=== PATIENT | female | born 1985 | race Caucasian/White ===

== ENCOUNTER 2021-10-27 09:21 | Outpatient (CLI) | payer OTHER, SELFPAY ==
[2021-11-03 02:43] LABS: Ova and Parasite, Fecal Negative (Negative)
== END 2021-10-27 09:22 | disposition home or self-care (01) ==
PROVIDERS: Visit Provider Registered Nurse
DX: R14.0 Abdominal distension (gaseous) (principal); R10.9 Unspecified abdominal pain
CPT/HCPCS: 87045; 87046; 87177; 87209; 87427

== ENCOUNTER 2022-01-18 10:31 | Outpatient (CLI) | payer OTHER, SELFPAY ==
[2022-01-18 22:02] LABS: Albumin* 4.5 g/dL (3.3-5.0); Chloride* 102 mmol/L (96-114)
[2022-01-18 22:03] LABS: Potassium* 4.3 mmol/L (3.6-5.1); Sodium* 140 mmol/L (135-149)
[2022-01-18 22:04] LABS: Cholesterol* 171 mg/dL (90-199)
[2022-01-18 22:05] LABS: Alkaline Phosphatase* 115 U/L (40-150); Aspartate Amino Transferase* 31 U/L (12-35); Bilirubin Total* 0.7 mg/dL (0.1-1.5); Blood Urea Nitrogen* 18 mg/dL (5-24); Carbon Dioxide* 27 mmol/L (20-32); Creatinine* 0.7 mg/dL (0.5-1.5); Estimated Glomerular Filt Rate 115 ml/min; Glucose* 81 mg/dL (60-115); Total Protein* 7.5 g/dL (6.0-8.3); Triglycerides* 228 mg/dL (40-149)
[2022-01-18 22:06] LABS: Alanine Aminotransferase* 29 U/L (4-35); Calcium* 9.3 mg/dL (8.4-10.6); HDL Cholesterol* 40 mg/dL (>=50); LDL Cholesterol Calculated 85 mg/dL (<100)
[2022-01-18 22:50] LABS: Hepatitis C Virus Antibody* Negative (Negative)
== END 2022-01-18 10:32 | disposition home or self-care (01) ==
PROVIDERS: PCP Family Medicine; Visit Provider Family Medicine
DX: Z01.419 Encounter for gynecological examination (general) (routine) without abnormal findings (principal); E03.9 Hypothyroidism, unspecified; Z13.6 Encounter for screening for cardiovascular disorders; Z11.59 Encounter for screening for other viral diseases
CPT/HCPCS: 80053; 80061; 84443; 86803

== ENCOUNTER 2022-09-13 12:49 | Outpatient (CLI) | payer OTHER, SELFPAY ==
--- NOTE | 2022-09-13 13:00 | CRLHL7_ITS ---
For Patients: As a result of the Cures Act, medical imaging exams and procedure reports are released immediately into your electronic medical record. You may view this report before your referring provider. If you have questions, please contact your health care provider. BILATERAL DIGITAL SCREENING MAMMOGRAM WITH COMPUTER-AIDED DETECTION AND TOMOSYNTHESIS CLINICAL HISTORY: Routine screening exam. COMPARISON: 06/03/2021. TECHNIQUE: Digital mammogram in CC and MLO projections including computer-aided detection (CAD). Tomosynthesis was used. BREAST COMPOSITION: There are scattered areas of fibroglandular density FINDINGS: RIGHT Breast: No suspicious findings, stable nodular densities. LEFT Breast: Nodular density upper outer quadrant 6 cm from the nipple. IMPRESSION: LEFT breast asymmetry/mass. RECOMMENDATIONS: LEFT breast ultrasound recommended. The [facility] will contact the patient for follow-up. BI-RADS Category 0: Incomplete: Need Additional Imaging Evaluation and/or Prior Mammograms for Comparison. A lay language report of this examination will be provided to the patient. Dictated by Jair Odell MD @ 09/14/2022 8:35:29 AM/sandra TESS/Dictated by: Jair Odell MD @ 09/14/2022 8:35:00 AM (Electronically Signed)
== END 2022-09-13 12:50 | disposition home or self-care (01) ==
LOC: MAMMO 12:50
PROVIDERS: PCP Family Medicine; Visit Provider Family Medicine
DX: Z12.31 Encounter for screening mammogram for malignant neoplasm of breast (principal); N63.20 Unspecified lump in the left breast, unspecified quadrant
CPT/HCPCS: 77063; 77067

== ENCOUNTER 2022-09-27 09:27 | Outpatient (CLI) | payer OTHER, SELFPAY ==
--- NOTE | 2022-09-27 10:15 | CRLHL7_ITS ---
For Patients: As a result of the Cures Act, medical imaging exams and procedure reports are released immediately into your electronic medical record. You may view this report before your referring provider. If you have questions, please contact your health care provider. LEFT BREAST ULTRASOUND CLINICAL HISTORY: LEFT breast nodule. COMPARISON: Mammogram 09/13/2022. TECHNIQUE: Real-time ultrasound imaging of LEFT breast with imaging documentation. FINDINGS: Targeted sonogram LEFT breast performed upper outer quadrant 1 o`clock 6 cm from the nipple. In this location there is a simple circumscribed anechoic cyst with increased through-transmission measuring 1.8 x 1.0 x 1.8 cm. IMPRESSION: Simple cyst LEFT breast 1 o`clock 6 cm from the nipple measuring 1.8 cm. RECOMMENDATIONS: Screening mammography as clinically indicated. Results and recommendations were discussed with the patient at the time of the exam. BI-RADS Category 2: Benign A lay language report of this examination will be provided to the patient. Dictated by Jair Odell MD @ 09/27/2022 10:10:55 AM /Dictated by: Jair Odell MD @ 09/27/2022 10:10:00 AM (Electronically Signed)
== END 2022-09-27 09:28 | disposition home or self-care (01) ==
LOC: MAMMO 09:28
PROVIDERS: PCP Family Medicine; Visit Provider Family Medicine
DX: N63.20 Unspecified lump in the left breast, unspecified quadrant (principal); N60.02 Solitary cyst of left breast; R92.8 Other abnormal and inconclusive findings on diagnostic imaging of breast
CPT/HCPCS: 76642

== ENCOUNTER 2024-11-23 10:30 | Outpatient (CLI) | payer OTHER, SELFPAY | END 2024-11-23 10:31 | disposition home or self-care (01) | LOC: NFLDREF 11-25 17:01 | PROVIDERS: PCP Nurse Practitioner Family; Referring Provider Nurse Practitioner Family; Visit Provider Nurse Practitioner Family | DX: I10 Essential (primary) hypertension (principal); R53.83 Other fatigue; D68.62 Lupus anticoagulant syndrome; E66.3 Overweight; R25.2 Cramp and spasm; F41.9 Anxiety disorder, unspecified; M79.7 Fibromyalgia; N92.0 Excessive and frequent menstruation with regular cycle; Z13.1 Encounter for screening for diabetes mellitus; Z13.6 Encounter for screening for cardiovascular disorders | CPT/HCPCS: 80053; 80061; 82306; 82728; 84443; 86140 ==